=== PATIENT | male | born 1950 | race Caucasian/White ===

== ENCOUNTER 2017-05-05 20:51 | Emergency (ER) | payer MEDICARE ==
--- NOTE | 2017-05-05 21:27 | ED Physician Documentation ---
Upper Respiratory Symptoms - HISTORIAN Historian: patient - HPI Chief Complaint: Cough/ Upper Respiratory Additional Information: felt "yucky" x 9 days, just started taking OTC cold medicine today. [facility] pt. dry cough, fatigue, nasal congestion Onset: days ago Duration: constant Context: denies: recent foreign travel Severity: mild Associated Symptoms: chills Worsened by Deep Breath: No Further Comments: no - ROS CONST/EYES: denies: eye redness, eye itching CVS/RESP: none. denies: shortness of breath LYMPH: denies: leg swelling GI/: none NEURO/PSYCH: denies: dizziness MS/SKIN: denies: joint pain, muscle aches - PAST HX Lung Disease: none PE Risk Factors: hypertension Other History: CHF, diabetes Type 1 Surgeries/Procedures: none Immunizations: pneumovax Allergies/Adverse Reactions: Allergies Allergy/AdvReac Type Severity Reaction Status Date / Time No Known Allergies Allergy Verified 05/05/17 21:24 Home Medications: Ambulatory Orders Medication Instructions Recorded Aspirin [Dannielle] 325 mg PO HS 02/01/16 Insulin Aspart Protam & Aspart 10 [place] [address] 02/01/16 [Novolog Mix 70-30 Vial] Insulin Glargine,Hum.rec.anlog 35 unit SQ HS 02/01/16 [Lantus Solostar] Calcium Carbonate [Calcium] 650 mg PO BID 05/05/17 Carvedilol [Coreg] 25 mg PO BID 05/05/17 Cholecalciferol [Vitamin D-3] 1,000 unit PO DAILY 05/05/17 Dipyridamole [Persantine] 50 mg PO BID 05/05/17 Furosemide [Lasix] 20 mg PO DAILY 05/05/17 Insulin Aspart [Novolog Flexpen] 35 units SUBCUT 1700 05/05/17 Levothyroxine Sodium [Synthroid] 50 mcg PO DAILY 05/05/17 Lisinopril [Zestril] 60 mg PO DAILY 05/05/17 Omeprazole [Prilosec] 20 mg PO DAILY 05/05/17 Sertraline HCl [Zoloft] 100 mg PO DAILY 05/05/17 Tamsulosin HCl [Flomax] 0.4 mg PO DAILY 05/05/17 Tramadol HCl [Ultram] 50 mg PO BID 05/05/17 amLODIPine BESYLATE [Norvasc] 10 mg PO DAILY 05/05/17 - SOCIAL HX Smoking History: non-smoker Alcohol Use: none Drug Use: none - FAMILY HX Family History: no significant history - VITAL SIGNS Vital Signs: Vital Signs Temp Pulse Resp BP Pulse Ox 98.7 F 90 20 172/93 95 05/05/17 20:51 05/05/17 20:51 05/05/17 20:51 05/05/17 20:51 05/05/17 20:51 - REVIEWED ASSESSMENTS Nursing Assessment Reviewed: Yes Vitals Reviewed: Yes ED Results Lab/Radiology - Radiology Radiology Impressions: CXR no infectious process - Orders Orders: ED Orders Category Date Time Status CHEST 2 VIEW [CHEST P.A.&LAT 2 VIEWS] [RAD] Stat Exams 05/05/17 Taken Chem Sticks Med 05/05/17 21:25 Discontinued 1 each MC NOW ONE Chem Sticks Med 05/06/17 21:37 Discontinued 1 each MC NOW ONE Upper Respiratory Symptoms - EXAM General Appearance: no acute distress, alert EENT: nml ENT inspection. No: pharyngeal erythema Neck: normal inspection, supple. No: lymphadenopathy, stiff neck Respiratory: no resp. distress, no pain on inspiration, speaks full sentences, rales Abdomen: non-tender CVS: reg rate & rhythm, heart sounds normal, equal pulses Skin: color nml, no rash, warm,dry Extremities: non-tender, normal range of motion Neuro/Psych: oriented x3, neuro intact, mood/affect nml Discharge Clincal Impression: URI with cough and congestion Allergic rhinitis Qualifiers: Chronicity: acute Allergic rhinitis trigger: unspecified Allergic rhinitis seasonality: unspecified seasonality Qualified Code(s): J30.9 - Allergic rhinitis, unspecified Referrals: Primary Doctor,No [Primary Care Provider] - 2 Days Home Medications: Ambulatory Orders Aspirin [Dannielle] 325 mg PO HS 02/01/16 Insulin Aspart Protam & Aspart [Novolog Mix 70-30 Vial] [address] [place] [address] Insulin Glargine,Hum.rec.anlog [Lantus Solostar] 35 unit SQ HS 02/01/16 Calcium Carbonate [Calcium] 650 mg PO BID 05/05/17 Carvedilol [Coreg] 25 mg PO BID 05/05/17 Cholecalciferol [Vitamin D-3] 1,000 unit PO DAILY 05/05/17 Dipyridamole [Persantine] 50 mg PO BID 05/05/17 Furosemide [Lasix] 20 mg PO DAILY 05/05/17 Insulin Aspart [Novolog Flexpen] 35 units SUBCUT 1700 05/05/17 Levothyroxine Sodium [Synthroid] 50 mcg PO DAILY 05/05/17 Lisinopril [Zestril] 60 mg PO DAILY 05/05/17 Omeprazole [Prilosec] 20 mg PO DAILY 05/05/17 Sertraline HCl [Zoloft] 100 mg PO DAILY 05/05/17 Tamsulosin HCl [Flomax] 0.4 mg PO DAILY 05/05/17 Tramadol HCl [Ultram] 50 mg PO BID 05/05/17 amLODIPine BESYLATE [Norvasc] 10 mg PO DAILY 05/05/17 Condition: Good Disposition: 01 HOME, SELF-CARE Decision to Admit: NO Date of Decison to Admit: 05/05/17 Decision Time: 21:58
[2017-05-05 21:31] VITALS: BP 172/93
--- NOTE | 2017-05-06 05:23 | Diagnostic Imaging Report ---
ANA BOWMAN [facility] [address] [facility].[address] [id number] Report Submission Date: May 05, 2017 9:44:09 PM CDT Patient Study Name: JOSE GALAN Date: May 05, 2017 9:27:09 PM CDT Modality Type: CR Gender: M Description: CHEST : 46 Institution: [facility] Physician: ANA BOWMAN Chest -two views CLINICAL HISTORY: Cough. Congestion. FINDINGS: Examination of the chest in PA and lateral views demonstrates the lungs to be free of coalescent infiltrate. Cardiac silhouette is prominent and the aorta is atherosclerotic. Degenerative changes are seen in the thoracic vertebrae. IMPRESSION: Aortic atherosclerosis. No active disease. Electronically signed on May 05, 2017 9:44:09 PM CDT by: Bryant YEN
== END 2017-05-05 22:06 | disposition home or self-care (01) ==
LOC: ED 20:51
DX: J06.9 Acute upper respiratory infection, unspecified (principal); J30.9 Allergic rhinitis, unspecified
CPT/HCPCS: 71020; 99283